=== PATIENT | female | born 1960 | race Caucasian/White ===

== ENCOUNTER 2017-02-19 06:33 | Day surgery (SDC) | payer BC ==
[~2017-02-19] VITALS: Ht 157.5 cm; Wt 81.6 kg
[~2017-02-19 06:33] MED LIST: AMOXICILLIN500 MG PO; ASPIRIN EC81 MG PO; BAYER ASPIRIN325 MG PO; CIPRO500 MG OR; CIPRO500 MG PO; CIPROFLOXACN250 MG PO; CIPROFLOXACN500 MG PO; CLARITIN10 M2 PO; CLONAZEPAM0.5 MG PO; DILAUDID 2MG2 MG/TA1 PO; DILAUDID 2MG2 MG/TAB PO; DILAUDID2 MG OR; FLEXERIL5 M1 PO; HYDROXYZ HCL25 MG PO; KEFLEX500 MG PO; KLONOPIN0.5 MG PO; LORTAB5 PO; MECLIZINE HCL25 MG PO; MEDDOSEPAK PO; MELOXICAM15 MG PO; NABUMETONE500 MG PO; NORTRIPTYLIN25 MG PO; OXYCODONE5 M1 OR; PERCOCET 5/325M1 TAB PO; PHENERGAN SUPP RE; PRAVACHOL40 MG PO; SULFASALAZIN500 M1 PO; TOPROL XL50 MG PO; ULTRAM50 MG OR; ULTRAM50 MG PO; WELLBUTRI1 PO; WELLBUTRIN SR150 MG PO; ZOFRAN4 MG/TAB PO; ZOLOFT100 MG PO; ZOLOFT50 MG PO
[2017-02-19] MEDS ORDERED: NORCO1 TA1 PO (09:31)
[2017-02-19 13:48] VITALS: BP 94/53
== END 2017-02-19 10:15 | disposition home or self-care (01) | DRG 572 ==
LOC: ORM 06:33
PROVIDERS: ATTEND Surgery
PROC: 0JB70ZZ Excision of Back Subcutaneous Tissue and Fascia, Open Approach (ICD-10-PCS; principal; 2017-02-19)
DX: D17.1 Benign lipomatous neoplasm of skin and subcutaneous tissue of trunk (principal); E78.00 Pure hypercholesterolemia, unspecified; Z87.891 Personal history of nicotine dependence

== ENCOUNTER 2017-10-16 16:45 | Emergency (ER) | payer BC ==
[~2017-10-16] VITALS: Ht 157.5 cm; Wt 90.0 kg
[~2017-10-16 16:45] MED LIST changes: +CEFEPIME2 GM IM; +CEFTAZIDIME; +NORCO1 TA1 PO; +[UNRECOGNIZED DRUG - CODE] IV
[2017-10-16 17:25] LABS: HEMATOCRIT 41.5 % (37.0-47.0); HEMOGLOBIN 13.9 g/dl (12.0-16.0); IMMATURE GRANULOCYTES 0.1 % (0.0-1.0); MEAN CORPUSCULAR HGB 30.5 pG CALC (26.0-32.0); MEAN CORPUSCULAR HGB CONC 33.5 g/L CALC (32.0-36.0); NEUT# 6.05 thou/uL (2.00-7.15); RED BLOOD COUNT 4.56 mill/uL (4.20-5.60); RED CELL DISTRI WIDTH 13.1 % (11.5-15.5)
[2017-10-16 17:27] LABS: URINE BLOOD DIPSTICK LARGE (NEGATIVE); URINE COLOR YELLOW; URINE GLUCOSE - DIPSTICK NEGATIVE (NEGATIVE); URINE KETONE NEGATIVE (NEGATIVE); URINE LEUK ESTERASE TRACE (NEGATIVE); URINE NITRITE - DIPSTICK NEGATIVE (Negative); URINE PROTEIN - DIPSTICK 30 mg/dL (NEG-TRACE); URINE SPECIFIC GRAVITY >=1.030; URINE UROBILINOGEN - DIPSTICK 0.2 E.U./dL (0.2)
[2017-10-16 17:29] LABS: URINE CLARITY CLEAR
[2017-10-16 17:30] LABS: URINE BILIRUBIN - DIPSTICK NEGATIVE (NEGATIVE)
[2017-10-16 17:39] LABS: URINE SQUAMOUS EPITHELIAL CELL FEW EPI/hpf (0-FEW); URINE WBC 0-2 WBC/hpf (0-5)
[2017-10-16 18:00] LABS: ALBUMIN 4.6 g/dL (3.2-5.0); ALKALINE PHOSPHATASE 96 u/l (38-126); ANION GAP 18 (6-22 (CALC)); BILIRUBIN, TOTAL 0.5 mg/dL (0.0-1.4); BUN 16 mg/dL (7-17); BUN/CREATININE RATIO 19 (12-20 (CALC)); CARBON DIOXIDE 22 mmol/l (22-30); CHLORIDE 105 mmol/l (95-108); CREATININE 0.9 mg/dL (0.5-1.0); GFR > 60 ML/MIN (>=60 (CALC)); GFR FOR AFR.AMER. > 60 ML/MIN (>=60 (CALC)); LIPASE 1345 u/l (23-300); POTASSIUM 4.3 mmol/l (3.5-5.1); SGOT/AST 29 u/l (14-36); SGPT/ALT 43 u/l (9-52); SODIUM 140 mmol/l (137-146); TOTAL PROTEIN 7.9 g/dL (6.3-8.2)
[2017-10-16] MEDS ORDERED: LOMOTIL2.5 MG PO (19:44)
[2017-10-16 20:05] VITALS: BP 112/60
== END 2017-10-16 20:04 | disposition home or self-care (01) | DRG 440 ==
LOC: ED 16:45
PROVIDERS: Family Medicine
DX: K85.90 Acute pancreatitis without necrosis or infection, unspecified (principal); R19.7 Diarrhea, unspecified; R73.03 Prediabetes; E78.5 Hyperlipidemia, unspecified; F17.210 Nicotine dependence, cigarettes, uncomplicated; Z86.73 Personal history of transient ischemic attack (TIA), and cerebral infarction without residual deficits; Z85.828 Personal history of other malignant neoplasm of skin; Z87.442 Personal history of urinary calculi
CPT/HCPCS: Q9967

== ENCOUNTER → 2018-06-15 | Outpatient (REF) | payer BC ==
[~2018-06-15] MED LIST changes: +LOMOTIL2.5 MG PO
== END | disposition home or self-care (01) | DRG 204 ==
LOC: DI 17:23
PROVIDERS: ATTEND Nurse Practitioner Family
DX: R05 Cough (principal)

== ENCOUNTER 2018-09-03 08:33 | Day surgery (SDC) | payer BC ==
[~2018-09-03] VITALS: Ht 154.9 cm; Wt 83.0 kg
[~2018-09-03 08:33] MED LIST changes: +ALLERGY NA50 MCG/ACT; +AMOX/K CLAV875 M1 PO; +CETIRIZINE5 MG PO; +DICLOFENAC GEL; +MONTELUKAST SOD10 MG PO; +MONTELUKAST SODIUM XX; +VENTOLIN HF1 IN
[2018-09-03] MEDS ORDERED: PERCOCET 5/325M1 TAB PO (11:05)
[2018-09-03 12:13] VITALS: BP 100/64
== END 2018-09-03 11:40 | disposition home or self-care (01) | DRG 572 ==
LOC: ORM 08:33
PROVIDERS: ATTEND Surgery
PROC: 0JB90ZZ Excision of Buttock Subcutaneous Tissue and Fascia, Open Approach (ICD-10-PCS; principal; 2018-09-03)
DX: L05.01 Pilonidal cyst with abscess (principal); D18.01 Hemangioma of skin and subcutaneous tissue; F17.210 Nicotine dependence, cigarettes, uncomplicated
CPT/HCPCS: J0131

== ENCOUNTER 2018-09-17 15:56 | Emergency (ER) | payer BC ==
[~2018-09-17] VITALS: Ht 154.9 cm; Wt 84.1 kg
[2018-09-17] MEDS ORDERED: BACTRIM DS1 TAB PO (16:34)
[2018-09-17] MEDS ORDERED: CEPHALEXIN500 MG PO (16:34)
[2018-09-17 17:00] VITALS: BP 119/78
== END 2018-09-17 17:00 | disposition home or self-care (01) | DRG 921 ==
LOC: ED 15:56
DX: T81.31XA Disruption of external operation (surgical) wound, not elsewhere classified, initial encounter (principal)

== ENCOUNTER 2019-05-19 | Emergency (ER) | payer BC ==
[~2019-05-19] MED LIST changes: +ASMANEX HF100 MCG/AC IN; +BACTRIM DS1 TAB PO; +BUSPIRONE5 MG PO; +CEPHALEXIN500 MG PO; +DYMISTA1 SPR; +METFORMIN500 M2 PO; +NITROSTAT0.4 MG SL; +SERTRALINE100 MG PO
[2019-05-19 14:08] LABS: IMMATURE GRANULOCYTES 0.7 % (0.0-5.0); MEAN CELL VOLUME 89.5 fL CALC (80.0-100.0); MEAN CORPUSCULAR HGB 30.1 pG CALC (26.0-32.0); MEAN CORPUSCULAR HGB CONC 33.6 g/L CALC (32.0-36.0); NEUT# 14.19 thou/uL (2.00-7.15); RED BLOOD COUNT 3.72 mill/uL (4.20-5.60); RED CELL DISTRI WIDTH 12.5 % (11.5-15.5)
[2019-05-19 14:09] LABS: URINE BLOOD DIPSTICK LARGE (NEGATIVE); URINE COLOR YELLOW; URINE GLUCOSE - DIPSTICK NEGATIVE (NEGATIVE); URINE KETONE TRACE mg/dL (NEGATIVE); URINE LEUK ESTERASE NEGATIVE (NEGATIVE); URINE NITRITE - DIPSTICK NEGATIVE (Negative); URINE PH 5.5 (4.5-8.0); URINE PROTEIN - DIPSTICK >=300 mg/dL (NEG-TRACE); URINE SPECIFIC GRAVITY >=1.030
[2019-05-19 14:15] LABS: URINE BILIRUBIN - DIPSTICK NEGATIVE (NEGATIVE)
[2019-05-19 14:30] LABS: URINE SQUAMOUS EPITHELIAL CELL FEW EPI/hpf (0-FEW)
[2019-05-19 14:32] LABS: HEMATOCRIT 33.3 % (37.0-47.0); HEMOGLOBIN 11.2 g/dl (12.0-16.0)
[2019-05-19 14:36] LABS: ALBUMIN 4.2 g/dL (3.2-5.0); CREATININE 1.4 mg/dL (0.5-1.0); POTASSIUM 3.8 mmol/l (3.5-5.1); TOTAL PROTEIN 7.6 g/dL (6.3-8.2)
[2019-05-19 14:51] LABS: BILIRUBIN, TOTAL 1.4 mg/dL (0.0-1.4)
[2019-05-19] MEDS ORDERED: DOXYCYCL HYC100 MG PO (15:31)
== END 2019-05-19 16:09 | disposition home or self-care (01) | DRG 203 ==
PROVIDERS: Family Medicine
DX: J40 Bronchitis, not specified as acute or chronic (principal); E11.9 Type 2 diabetes mellitus without complications; I10 Essential (primary) hypertension; F17.200 Nicotine dependence, unspecified, uncomplicated; Z86.73 Personal history of transient ischemic attack (TIA), and cerebral infarction without residual deficits; Z79.84 Long term (current) use of oral hypoglycemic drugs

== ENCOUNTER 2021-07-19 09:56 | Day surgery (SDC) | payer BC ==
[~2021-07-19] VITALS: Ht 154.9 cm; Wt 73.9 kg
[~2021-07-19 09:56] MED LIST changes: +ASMANEX TWIST IN; +DOXYCYCL HYC100 MG PO; +FLUTICASON50 MCG/ACT; +VAZALORE81 MG PO
[2021-07-19 12:08] VITALS: BP 136/80
== END 2021-07-19 12:27 | disposition home or self-care (01) | DRG 951 ==
LOC: ORM 09:56
PROVIDERS: ATTEND Surgery
PROC: 0DJD8ZZ Inspection of Lower Intestinal Tract, Via Natural or Artificial Opening Endoscopic (ICD-10-PCS; principal; 2021-07-19)
DX: Z12.11 Encounter for screening for malignant neoplasm of colon (principal); I10 Essential (primary) hypertension; Z86.73 Personal history of transient ischemic attack (TIA), and cerebral infarction without residual deficits; Z86.010 Personal history of colon polyps

== ENCOUNTER 2021-11-20 07:05 | Day surgery (SDC) | payer BC ==
[~2021-11-20] VITALS: Ht 154.9 cm; Wt 74.8 kg
[~2021-11-20 07:05] MED LIST changes: +XYZAL ALLERGY 245 MG PO
[2021-11-20] MEDS ORDERED: PERCOCET 5/325M1 TAB PO (09:15)
[2021-11-20 09:44] VITALS: BP 124/75
== END 2021-11-20 10:05 | disposition home or self-care (01) | DRG 572 ==
LOC: ORM 07:05
PROVIDERS: ATTEND Surgery
PROC: 0JB70ZZ Excision of Back Subcutaneous Tissue and Fascia, Open Approach (ICD-10-PCS; principal; 2021-11-20)
DX: D17.1 Benign lipomatous neoplasm of skin and subcutaneous tissue of trunk (principal); Z86.73 Personal history of transient ischemic attack (TIA), and cerebral infarction without residual deficits
CPT/HCPCS: J3490

== ENCOUNTER 2023-04-09 15:27 | Emergency (ER) | payer BC ==
[2023-04-09] VITALS (11 sets, daily range): BP systolic 112–163; BP diastolic 74–95
[~2023-04-09] VITALS: Ht 154.9 cm; Wt 77.0 kg
[2023-04-09 16:01] LABS: BASO% 0.2 % (0-3); EOS% 0.5 % (0-8); IMMATURE GRANULOCYTES 0.2 % (0.0-5.0); LYMPH% 24.9 % (15-41); MEAN CELL VOLUME 93.5 fL CALC (80.0-100.0); MEAN CORPUSCULAR HGB CONC 33.1 g/dL CAL (32.0-36.0); MONO% 3.3 % (2-13); NEUT# 6.48 thou/uL (2.00-7.15); NEUT% 70.9 % (42-76); RED BLOOD COUNT 4.65 mill/uL (4.20-5.60); RED CELL DISTRI WIDTH 12.3 % (11.5-15.5)
[2023-04-09 16:17] LABS: HEMATOCRIT 43.5 % (37.0-47.0); HEMOGLOBIN 14.4 g/dl (12.0-16.0)
[2023-04-09 16:25] LABS: ALKALINE PHOSPHATASE 107 u/l (38-126); ANION GAP 19 (6-22 (CALC)); BUN 23 mg/dL (8-23); BUN/CREATININE RATIO 22 (12-20 (CALC)); CARBON DIOXIDE 21 mmol/l (22-30); CHLORIDE 102 mmol/l (95-108); CREATININE 1.1 mg/dL (0.5-1.0); GFR FOR AFR.AMER. > 60 ML/MIN (>=60 (CALC)); GFR OTHER RACES 50 ML/MIN (>=60 (CALC)); POTASSIUM 4.3 mmol/l (3.5-5.1); SGOT/AST 41 u/l (9-36); SODIUM 137 mmol/l (137-146); TOTAL PROTEIN 8.2 g/dL (6.3-8.2)
[2023-04-09 16:30] LABS: BILIRUBIN, TOTAL 0.6 mg/dL (0.02-1.3)
== END 2023-04-09 17:50 | disposition home or self-care (01) | DRG 305 ==
LOC: ED 15:27
PROVIDERS: Emergency Medicine
DX: I10 Essential (primary) hypertension (principal); E11.9 Type 2 diabetes mellitus without complications; F41.9 Anxiety disorder, unspecified; F32.A Depression, unspecified; Z86.73 Personal history of transient ischemic attack (TIA), and cerebral infarction without residual deficits; F17.200 Nicotine dependence, unspecified, uncomplicated

== ENCOUNTER 2024-04-24 13:29 | Inpatient (IN) | payer BC ==
[~2024-04-24] VITALS: Ht 154.9 cm; Wt 59.0 kg
--- NOTE | 2024-04-24 14:19 | NUR ---
PATIENT TO ER ROOM 9 WITH STEADY GAIT.
[2024-04-24] MEDS ORDERED: ONDANSETRON HCl 4 MG/2 ML SDV IV STA (14:45)
[2024-04-24] MEDS ORDERED: KETOROLAC TROMETHAMINE 15 MG/ML SDV IV STA (14:45)
[2024-04-24] MEDS ORDERED: SODIUM CHLORIDE 0.9% 1,000 ML IV STA (14:45)
[2024-04-24 14:46] LABS: URINE BLOOD DIPSTICK Moderate (NEGATIVE); URINE GLUCOSE - DIPSTICK Negative (NEGATIVE); URINE KETONE 15 mg/dL (NEGATIVE); URINE LEUK ESTERASE Negative (NEGATIVE); URINE NITRITE - DIPSTICK Negative (Negative); URINE PH 5.5 (4.5-8.0); URINE PROTEIN - DIPSTICK >=300 mg/dL (NEG-TRACE); URINE SPECIFIC GRAVITY >=1.030; URINE UROBILINOGEN - DIPSTICK 0.2 E.U./dL (0.2)
[2024-04-24 14:48] LABS: BASO% 0.1 % (0-3); EOS% 0.3 % (0-8); HEMATOCRIT 44.3 % (37.0-47.0); HEMOGLOBIN 14.8 g/dl (12.0-16.0); IMMATURE GRANULOCYTES 0.1 % (0.0-5.0); LYMPH% 26.5 % (15-41); MEAN CELL VOLUME 93.1 fL CALC (80.0-100.0); MEAN CORPUSCULAR HGB 31.1 pG CALC (26.0-32.0); MEAN CORPUSCULAR HGB CONC 33.4 g/dL CAL (32.0-36.0); MONO% 12.7 % (2-13); NEUT# 5.74 thou/uL (2.00-7.15); NEUT% 60.3 % (42-76); RED BLOOD COUNT 4.76 mill/uL (4.20-5.60); RED CELL DISTRI WIDTH 12.4 % (11.5-15.5)
[2024-04-24 14:54] LABS: URINE COLOR Yellow
[2024-04-24 14:56] LABS: URINE CALCIUM OXALATE CRYSTALS FEW lpf; URINE SQUAMOUS EPITHELIAL CELL FEW EPI/hpf (0-FEW); URINE WBC 0-2 WBC/hpf (0-5)
[2024-04-24 14:57] LABS: URINE BACTERIA FEW hpf; URINE RBC 0-2 RBC/hpf (0-5)
[2024-04-24 14:58] LABS: URINE COARSE GRANULAR CAST FEW lpf
[2024-04-24 15:01] LABS: ALBUMIN 4.9 g/dL (3.2-5.0); TOTAL PROTEIN 7.7 g/dL (6.3-8.2)
[2024-04-24 15:02] LABS: BILIRUBIN, TOTAL 1.2 mg/dL (0.02-1.3)
--- NOTE | 2024-04-24 15:02 | NUR ---
Reassessment of patient completed. No distress noted. PT MEDICATED PER EMAR, DENIES ANY NEEDS
--- NOTE | 2024-04-24 16:28 | NUR ---
PT IN BED, VSS, CALL LIGHT WITHIN REACH, DENIES ANY NEEDS AT THIS TIME
[2024-04-24] MEDS ORDERED: ONDANSETRON HCl 4 MG/2 ML SDV IV PRN (17:40)
[2024-04-24] MEDS ORDERED: KETOROLAC TROMETHAMINE 15 MG/ML SDV IV PRN (17:40)
[2024-04-24] MEDS ORDERED: LACTATED RINGER'S 1,000 ML IV PRN (17:40)
[2024-04-24] MEDS ORDERED: CYMBALTA60 MG PO (18:24)
[2024-04-24] MEDS ORDERED: ALLOPURINOL200 MG PO (18:25)
[2024-04-24] MEDS ORDERED: LIPITOR80 M1 PO (18:26)
[2024-04-24] MEDS ORDERED: COZAAR25 MG PO (18:27)
[2024-04-24] MEDS ORDERED: OZEMPIC4 MG IN (18:28)
--- NOTE | 2024-04-24 18:32 | NUR ---
CALLED REPORT TO ANGIE KIM, GAVE PT REPORT, PT TO BE TRANSPORTED TO [facility] BED 270
--- NOTE | 2024-04-24 18:40 | NUR ---
PT ARRIVED TO UNIT VIA WHEELCHAIR TRANSPORT, PT AMBULATED TO THE BED WITH STAND BY ASSIST.
--- NOTE | 2024-04-24 19:25 | NUR ---
PATIENT OBSERVED TO BE IN ROOM RESTING IN BED AWAKE, WATCHING TV. PATIENT CAN MAKE NEEDS KNOWN, NONE NEEDED AT THIS TIME. A&O X3. BEDSIDE ASSESSMENT COMPLETE. O2 VIA NC AT 2L. NO COMPLAINTS OF PAIN AT THIS TIME. BED AT LOWEST POSITION. CALL LIGHT WITH IN REACH.
[2024-04-24] MEDS ORDERED: ENOXAPARIN SODIUM 40 MG/0.4 ML SYR SC SCH (21:00)
[2024-04-25] VITALS (11 sets, daily range): BP systolic 110–142; BP diastolic 63–79
--- NOTE | 2024-04-25 00:25 | NUR ---
PATIENT OBSERVED TO BE IN BED WITH EYES CLOSED ON LEFT SIDE. UNLABORED RESP. NO VISUAL SIGNS OF DISTRESS. BED AT LOWEST POSITION. CALL LIGHT WITH IN REACH.
--- NOTE | 2024-04-25 04:52 | NUR ---
PATIENT OBSERVED TO BE RESTING IN BED AWAKE. PATIENT CAN MAKE NEEDS KNOWN, NONE NEEDED AT THIS TIME. UNLABORED RESP. NO VISUAL SIGNS OF DISTRESS. BED AT LOWEST POSITION. CALL LIGHT WITH IN REACH.
[2024-04-25 05:46] LABS: BASO% 0.3 % (0-3); EOS% 0.8 % (0-8); IMMATURE GRANULOCYTES 0.1 % (0.0-5.0); LYMPH% 35.3 % (15-41); MEAN CELL VOLUME 95.9 fL CALC (80.0-100.0); MEAN CORPUSCULAR HGB 31.5 pG CALC (26.0-32.0); MEAN CORPUSCULAR HGB CONC 32.9 g/dL CAL (32.0-36.0); MONO% 11.2 % (2-13); NEUT# 4.08 thou/uL (2.00-7.15); NEUT% 52.3 % (42-76); RED BLOOD COUNT 3.9 mill/uL (4.20-5.60); RED CELL DISTRI WIDTH 12.5 % (11.5-15.5)
[2024-04-25 05:47] LABS: HEMATOCRIT 37.4 % (37.0-47.0); HEMOGLOBIN 12.3 g/dl (12.0-16.0)
[2024-04-25 06:09] LABS: ALBUMIN 3.6 g/dL (3.2-5.0); POTASSIUM 3.9 mmol/l (3.5-5.1); TOTAL PROTEIN 6.1 g/dL (6.3-8.2)
[2024-04-25] MEDS ORDERED: ACETAMINOPHEN 1,000 MG/100 ML VIAL IV ONE (07:08)
[2024-04-25] MEDS ORDERED: ROCURONIUM BROMIDE 10 MG/ML 5ML VIAL IV ONE (07:08)
[2024-04-25] MEDS ORDERED: PHENYLEPHRINE HCL 10 MG/ML VIAL IV ONE (07:08)
[2024-04-25] MEDS ORDERED: SODIUM CHLORIDE 0.9% 1,000 ML BAG IV ONE (07:08)
[2024-04-25] MEDS ORDERED: PROPOFOL 200 MG/20 ML VIAL IV ONE (07:08)
[2024-04-25] MEDS ORDERED: SUGAMMADEX SODIUM 200 MG/2 ML SDV IV ONE (07:08)
[2024-04-25] MEDS ORDERED: SUCCINYLCHOLINE CHLORIDE 20 MG/ML 10ML VIAL IV ONE (07:08)
[2024-04-25] MEDS ORDERED: LIDOCAINE HCL 2% 2ML SDV IV ONE (07:08)
--- NOTE | 2024-04-25 08:00 | NUR ---
PT IS SEEN RESTING COMFORTABLY IN BED. PT ASSESSMENT WAS COMPLETED AND MEDICATIONS WERE ADMINISTERED. PLAN OF CARE WAS REVIEWED WITH THE PATIENT. PT IS A&O X4 AND MAKES HER NEEDS KNOWN. PT STATES NO FURTHER QUESTIONS AT THIS TIME. ALL NATIONAL PATIENT SAFETY PRECAUTIONS IN PLACE
[2024-04-25] MEDS ORDERED: MORPHINE SULFATE 4 MG/ML VIAL IV PRN (08:40)
--- NOTE | 2024-04-25 12:00 | NUR ---
PT'S CONDITION REMAINS THE SAME; NG TUBE HAS BEEN INSERTED PER PROVIDER. ALL NATIONAL PATIENT SAFETY PRECAUTIONS IN PLACE
[2024-04-25] MEDS ORDERED: DIATRIZOATE MEGLUMINE & SODIUM 30 ML/BTL PO SCH (14:00)
--- NOTE | 2024-04-25 16:00 | NUR ---
PT'S CONDITION HAS REMAINED THE SAME; ALL NATIONAL PATIENT SAFETY PRECAUTIONS IN PLACE
--- NOTE | 2024-04-25 19:15 | NUR ---
to or per bed.
[2024-04-25] MEDS ORDERED: SODIUM CHLORIDE 0.9% 10 ML SYR ONE (19:21)
[2024-04-25] MEDS ORDERED: SODIUM CHLORIDE 0.9% 1,000 ML IV ONE ×2 (19:21→21:44)
[2024-04-25] MEDS ORDERED: LIDOcaine HCl 1% (Local Anesth.) 20 ML VIAL ONE (19:28)
[2024-04-25] MEDS ORDERED: FAMOTIDINE 10MG/ML 2ML SDV IV ONE (19:33)
[2024-04-25] MEDS ORDERED: SCOPOLAMINE 1.5 MG DIS TD ONE (19:33)
[2024-04-25] MEDS ORDERED: SODIUM CHLORIDE 0.9% 100 ML IV ONE (19:49)
[2024-04-25] MEDS ORDERED: ceFAZolin Sodium 2 GM/VIAL SDV ONE (19:49)
[2024-04-25] MEDS ORDERED: ONDANSETRON HCl 4 MG/2 ML SDV IV PRN (21:00)
[2024-04-25] MEDS ORDERED: HYDROmorphone HCL 2 MG/AMP IV PRN (21:00)
[2024-04-25] MEDS ORDERED: HYDROmorphone HCL 2 MG/AMP ONE (21:25)
[2024-04-25] MEDS ORDERED: ONDANSETRON HCl 4 MG/2 ML SDV ONE (21:38)
--- NOTE | 2024-04-25 22:15 | NUR ---
returned from or. report rec'd. denies acute distress. ngt cont to lis. abd incision cris. dermabond intact. dickson cath in place. urine clear yellow.
[2024-04-26] VITALS (8 sets, daily range): BP systolic 99–115; BP diastolic 55–68
[2024-04-26] MEDS ORDERED: KETOROLAC TROMETHAMINE 15 MG/ML SDV IV SCH
--- NOTE | 2024-04-26 00:01 | NUR ---
awake. no acute distress. ivf infusing well.
--- NOTE | 2024-04-26 04:00 | NUR ---
uop marginal. urine remains clear yellow.
--- NOTE | 2024-04-26 08:00 | NUR ---
PT IS LAYING IN BED AWAKE. HER ONLY COMPLAINT IS ABOUT THE LOUDNESS OF THE CALL BELLS. I OFFERED TO SHUT HER DOOR AND SHE AGREED THAT WAS GOOD. CALL LIGHT IS IN REACH.
[2024-04-26 08:40] LABS: BASO% 0.1 % (0-3); IMMATURE GRANULOCYTES 0.1 % (0.0-5.0); LYMPH% 10.7 % (15-41); MEAN CORPUSCULAR HGB 31.9 pG CALC (26.0-32.0); MEAN CORPUSCULAR HGB CONC 33.6 g/dL CAL (32.0-36.0); MONO% 7.1 % (2-13); NEUT# 6.54 thou/uL (2.00-7.15); RED BLOOD COUNT 3.2 mill/uL (4.20-5.60); RED CELL DISTRI WIDTH 12.4 % (11.5-15.5)
[2024-04-26 08:43] LABS: HEMATOCRIT 30.4 % (37.0-47.0); HEMOGLOBIN 10.2 g/dl (12.0-16.0)
[2024-04-26 09:01] LABS: BILIRUBIN, TOTAL 0.7 mg/dL (0.02-1.3); CREATININE 0.9 mg/dL (0.5-1.0); MAGNESIUM 1.7 mg/dL (1.6-2.3); TOTAL PROTEIN 5.1 g/dL (6.3-8.2)
[2024-04-26 09:05] LABS: ALBUMIN 2.8 g/dL (3.2-5.0)
--- NOTE | 2024-04-26 12:00 | NUR ---
PT IS LAYING IN BED, WATCHING TV. CALL LIGHT IN HAND.
--- NOTE | 2024-04-26 12:24 | NUR ---
PT REQUESTED TO STOP THE SCD'S FOR THE TIME. SCD ARE NOW CURRENTLY OFF
--- NOTE | 2024-04-26 16:08 | NUR ---
PT IS LAYING IN BED WATCHING TV, CALL LIGHT IN REACH.
[2024-04-27] VITALS (11 sets, daily range): BP systolic 111–126; BP diastolic 61–69
[2024-04-27 05:26] LABS: ALBUMIN 2.6 g/dL (3.2-5.0); MAGNESIUM 1.8 mg/dL (1.6-2.3); POTASSIUM 3.6 mmol/l (3.5-5.1); TOTAL PROTEIN 4.7 g/dL (6.3-8.2)
[2024-04-27 05:31] LABS: BASO% 0.1 % (0-3); HEMATOCRIT 29.2 % (37.0-47.0); HEMOGLOBIN 9.8 g/dl (12.0-16.0); IMMATURE GRANULOCYTES 0.1 % (0.0-5.0); LYMPH% 34.3 % (15-41); MEAN CELL VOLUME 96.7 fL CALC (80.0-100.0); MEAN CORPUSCULAR HGB 32.5 pG CALC (26.0-32.0); MEAN CORPUSCULAR HGB CONC 33.6 g/dL CAL (32.0-36.0); MONO% 9.6 % (2-13); NEUT# 4.8 thou/uL (2.00-7.15); NEUT% 54.9 % (42-76); RED BLOOD COUNT 3.02 mill/uL (4.20-5.60); RED CELL DISTRI WIDTH 12.4 % (11.5-15.5)
--- NOTE | 2024-04-27 08:00 | NUR ---
PT IS LAYING IN BED NO COMPLAINTS AT THIS TIME. CALL LIGHT IN REACH.
--- NOTE | 2024-04-27 12:10 | NUR ---
PT IS SITTING IN BED WATCHING TV. CALL LIGHT IN HAND.
--- NOTE | 2024-04-27 16:15 | NUR ---
PT IS LAYING IN BED AWAKE. CALL LIGHT IN REACH.
[2024-04-27] MEDS ORDERED: PANTOPRAZOLE SODIUM Sesquihydr 40 MG/TAB PO SCH (21:22)
[2024-04-28] VITALS: BP 112/61
[2024-04-28 04:00] VITALS: BP 126/66
[2024-04-28 04:16] VITALS: BP 126/66
[2024-04-28 06:02] LABS: BASO% 0.4 % (0-3); EOS% 2.4 % (0-8); HEMATOCRIT 29.1 % (37.0-47.0); IMMATURE GRANULOCYTES 0.3 % (0.0-5.0); LYMPH% 28.7 % (15-41); MEAN CELL VOLUME 94.8 fL CALC (80.0-100.0); MEAN CORPUSCULAR HGB 32.6 pG CALC (26.0-32.0); MEAN CORPUSCULAR HGB CONC 34.4 g/dL CAL (32.0-36.0); MONO% 8.8 % (2-13); NEUT# 4.68 thou/uL (2.00-7.15); NEUT% 59.4 % (42-76); RED BLOOD COUNT 3.07 mill/uL (4.20-5.60); RED CELL DISTRI WIDTH 12.2 % (11.5-15.5)
[2024-04-28 06:17] LABS: ALBUMIN 2.4 g/dL (3.2-5.0); CREATININE 0.9 mg/dL (0.5-1.0); MAGNESIUM 1.7 mg/dL (1.6-2.3); POTASSIUM 3.5 mmol/l (3.5-5.1); TOTAL PROTEIN 4.5 g/dL (6.3-8.2)
--- NOTE | 2024-04-28 07:00 | NUR ---
SHIFT CHANGE REPORT, PT AWAKE ALERT AND ORIENTED RESTING IN BED, C/O ABD PAIN @ 2/10 AT THIS TIME, MIDLINE INC TO LOWER ABD CDI AND WELL APPROXIMATED WITH DERMA ESQUIVEL, PUNCTURE X 3 TO LEFT ABD ALSO WELL APPROXIMATED WITH DERMABOND. CALL YOON IN REACH AND BED LOCKED IN LOWEST POSITION.
[2024-04-28 07:36] VITALS: BP 105/64
[2024-04-28 11:15] VITALS: BP 128/70
[2024-04-28] MEDS ORDERED: HYDROCO/APAP1 TA9 PO (11:56)
--- NOTE | 2024-04-28 12:00 | NUR ---
LETHARGIC WITH MILS WEAKNESS, SAT UP FOR MEAL ASSISTED BY SPOUSE, ALL NEEDS ADDRESSED
--- NOTE | 2024-04-28 14:39 | NUR ---
Discharge instructions given. Patient verbalizes understanding of same. Discharged in good condition via Wheelchair to Home with family. All belongings sent with pt.
== END 2024-04-28 14:34 | disposition home or self-care (01) | DRG 337 ==
LOC: ED 13:29 → ED-I 17:25 → ED 17:34 → MS2 17:35
PROVIDERS: Emergency Medicine; Nurse Practitioner Family; ADMIT Internal Medicine; ATTEND Internal Medicine
PROC: 0DNE0ZZ Release Large Intestine, Open Approach (ICD-10-PCS; principal; 2024-04-25)
PROC: 0DJD4ZZ Inspection of Lower Intestinal Tract, Percutaneous Endoscopic Approach (ICD-10-PCS; 2024-04-25)
DX: K56.50 Intestinal adhesions [bands], unspecified as to partial versus complete obstruction (principal); I12.9 Hypertensive chronic kidney disease with stage 1 through stage 4 chronic kidney disease, or unspecified chronic kidney disease; E11.22 Type 2 diabetes mellitus with diabetic chronic kidney disease; N18.9 Chronic kidney disease, unspecified; E78.5 Hyperlipidemia, unspecified; F32.A Depression, unspecified; F41.9 Anxiety disorder, unspecified; F17.200 Nicotine dependence, unspecified, uncomplicated; Z87.442 Personal history of urinary calculi; Z86.73 Personal history of transient ischemic attack (TIA), and cerebral infarction without residual deficits; Z79.85 Long-term (current) use of injectable non-insulin antidiabetic drugs
CPT/HCPCS: J0131; J0690; J1100; J1171; J1650; J1885; J2405; Q9967